=== PATIENT | female | born 1970 | race Caucasian/White ===

== ENCOUNTER 2021-08-22 20:48 | Emergency (ER) | payer MEDICARE, SELFPAY ==
[2021-08-22 21:31] VITALS: BP 159/98; PULSE 96; RESP 18; TEMP 36.7; O2SAT 96
[2021-08-22 21:59] LABS: Glucose Point of Care 178 mg/dL (70-110)
[2021-08-23 00:53] LABS: Glucose Point of Care 127 mg/dL (70-110)
[2021-08-23 00:56] LABS: Basophils # 0.1 10^3/uL (0.0-0.1); Basophils % 0.9 %; Eosinophils # 0.2 10^3/uL (0.0-0.8); Eosinophils % 2.4 %; Hematocrit 41.5 % (37.0-47.0); Hemoglobin 13.4 g/dL (11.5-15.3); Lymphocytes # 2.8 10^3/uL (0.8-4.8); Mean Corpuscular HGB Conc 32.3 g/dL (30.0-36.0); Mean Corpuscular Hemoglobin 27.3 pg (28.0-34.0); Mean Corpuscular Volume 84.7 fl (81-99); Mean Platelet Volume 9.5 fL (7.4-10.4); Monocytes # 0.5 10^3/uL (0.2-0.9); Neutrophils # 5.49 10^3/uL (1.8-7.7); Neutrophils % 60.5 %; Nucleated Red Blood Cells % 0 %; Platelet Count 301 10^3/cmm (130-400); Red Cell Distribution Width 15.1 % (12.1-15.1); White Blood Count 9.1 10^3/uL (4.0-10.0)
[2021-08-23 01:17] LABS: Alanine Aminotransferase 19 U/L (0-33); Albumin Level 4.4 g/dL (3.5-5.2); Alkaline Phosphatase 90 IU/L (35-105); Anion Gap 16.4 (5-19); Aspartate Amino Transferase 17 U/L (0-32); Blood Urea Nitrogen 21 mg/dL (6-20); Calcium 9.2 mg/dL (8.5-10.5); Carbon Dioxide 26 mmol/L (22-29); Chloride 98 mmol/L (98-107); Globulin 2.8 g/dL (1.3-4.6); Glomerular Filtration Rate 105.4 mL/min (90-130); Glucose 128 mg/dL (65-115); Osmolality Calculated 287 mOsm/kg (285-295); Potassium 4.4 mmol/L (3.5-5.1); Sodium 136 mmol/L (136-145); Total Bilirubin 0.2 mg/dL (0.15-1.2); Total Protein 7.2 g/dL (6.6-8.7)
--- NOTE | 2021-08-23 04:18 | W.ED.RECABL ---
HPI - Recheck/Abnormal Lab/Rx General: Chief Complaint: Recheck/Abnormal Lab/Rx Stated Complaint: trouble with blood sugar Time Seen by Provider: 08/23/21 00:09 History of Present Illness: 51-year-old female from [place]. She presents stating that she has had trouble keeping her sugar up today. Traveling back 800 miles to [place], and the is worried as the patient has had to give herself 2 glucagon shots today to keep her sugar up. She has no glucagon left. She has been eating more sugary foods, and drinking juice, etc. to keep her sugar up today as well. It still seems to want to follow if she stops eating. She denies any recent illness, fever, cough, diarrhea, etc. Associated symptoms: fever, chest pain, nausea and abdominal pain Review of Systems Resp: Reports: dyspnea, productive cough, non-productive cough and wheezing GI: Reports: nausea and vomiting; Denies: abdominal pain Physical Exam Const: COMMON NORMALS: no acute distress, average body habitus and healthy appearing ORIENTATION/CONSCIOUSNESS: Yes awake, Yes oriented to person, Yes oriented to place and Yes oriented to time HENMT: COMMON NORMALS: normocephalic and atraumatic HEAD & SCALP: normocephalic and atraumatic FACE & SINUS: normal facial exam Eye: COMMON NORMALS: Equal, round and reactive pupils present and EOMs intact bilaterally PUPIL: Yes Equal, round and reactive pupils present Chest: COMMONS NORMALS: normal inspection of the chest and normal inspection of the breasts Breast/axilla inspection: Yes normal inspection of the breasts Resp: COMMON NORMALS: normal respiratory effort, No retractions, No use of accessory muscles and clear to auscultation bilaterally AUSCULTATION: clear to auscultation bilaterally Cardio: COMMON NORMALS: regular rate and regular rhythm RATE: regular rate RHYTHM: regular rhythm GI: COMMON NORMALS: Normal to inspection, nondistended, normoactive bowel sounds present, Soft to palpation and non-tender PALPATION: Yes Soft to palpation Neuro: SENSORIUM/ORIENTATION: Yes oriented to person, Yes oriented to place and Yes oriented to time Course Vital Signs: Vital signs: Vital Signs Temperature 98.0 F 08/22/21 21:31 Pulse Rate 96 08/22/21 21:31 Respiratory Rate 18 08/22/21 21:31 Blood Pressure 159/98 08/22/21 21:31 Pulse Oximetry 96 08/22/21 21:31 MDM - Recheck/Abnormal Lab/Rx Medical Decision Making Episodes of hypoglycemia seem to be resolved at this point. She is not had a low blood sugar since she has been here. She will be prescribed glucagon for the ride home in case her needs to use it. She was instructed to check her sugar often, and keep drinking and eating foods with sugar and protein to keep her sugar up. Lab Data : 08/23/21 00:50 08/23/21 00:50 Laboratory Results WBC 9.1 10^3/uL (4.0-10.0) 08/23/21 00:50 RBC 4.90 10^6/uL (4.1-5.3) 08/23/21 00:50 Hgb 13.4 g/dL (11.5-15.3) 08/23/21 00:50 Hct 41.5 % (37.0-47.0) 08/23/21 00:50 MCV 84.7 fl (81-99) 08/23/21 00:50 MCH 27.3 pg (28.0-34.0) L 08/23/21 00:50 MCHC 32.3 g/dL (30.0-36.0) 08/23/21 00:50 RDW 15.1 % (12.1-15.1) 08/23/21 00:50 Plt Count 301 10^3/cmm (130-400) 08/23/21 00:50 MPV 9.5 fL (7.4-10.4) 08/23/21 00:50 Neut % (Auto) 60.5 % 08/23/21 00:50 Lymph % (Auto) 31.0 % 08/23/21 00:50 Williams % (Auto) 5.0 % 08/23/21 00:50 Eos % (Auto) 2.4 % 08/23/21 00:50 Baso % (Auto) 0.9 % 08/23/21 00:50 Neut # (Auto) 5.49 10^3/uL (1.8-7.7) 08/23/21 00:50 Lymph # (Auto) 2.8 10^3/uL (0.8-4.8) 08/23/21 00:50 Williams # (Auto) 0.5 10^3/uL (0.2-0.9) 08/23/21 00:50 Eos # (Auto) 0.2 10^3/uL (0.0-0.8) 08/23/21 00:50 Baso # (Auto) 0.1 10^3/uL (0.0-0.1) 08/23/21 00:50 Nucleated RBC % (auto) 0 % 08/23/21 00:50 Nucleated RBCs # 0.0 /100WBC 08/23/21 00:50 Sodium 136 mmol/L (136-145) 08/23/21 00:50 Potassium 4.4 mmol/L (3.5-5.1) 08/23/21 00:50 Chloride 98 mmol/L (98-107) 08/23/21 00:50 Carbon Dioxide 26 mmol/L (22-29) 08/23/21 00:50 Anion Gap 16.4 (5-19) 08/23/21 00:50 BUN 21 mg/dL (6-20) H 08/23/21 00:50 Creatinine 0.6 mg/dL (0.5-0.9) 08/23/21 00:50 GFR Calculation 105.4 mL/min (90-130) 08/23/21 00:50 Glucose 128 mg/dL (65-115) H 08/23/21 00:50 POC Glucose 127 mg/dL (70-110) H 08/23/21 00:49 Calculated Osmolality 287 mOsm/kg (285-295) 08/23/21 00:50 Calcium 9.2 mg/dL (8.5-10.5) 08/23/21 00:50 Total Bilirubin 0.2 mg/dL (0.15-1.2) 08/23/21 00:50 AST 17 U/L (0-32) 08/23/21 00:50 ALT 19 U/L (0-33) 08/23/21 00:50 Alkaline Phosphatase 90 IU/L (35-105) 08/23/21 00:50 Total Protein 7.2 g/dL (6.6-8.7) 08/23/21 00:50 Albumin 4.4 g/dL (3.5-5.2) 08/23/21 00:50 Globulin 2.8 g/dL (1.3-4.6) 08/23/21 00:50 Discharge Plan Discharge Patient Disposition: Home Clinical Impression: Hypoglycemia Condition: Stable Prescriptions: New Glucagon Emergency Kit (human) 1 mg recon soln 1 mg IM Q20M PRN (Reason: hypoglycemia) Qty: 1 0RF Rx Instructions: until target blood sugar attained Discharge Orders: Discharge ED (Routine); Ordered 08/23/21 Ordered By: Anoop Marie Activity Restrictions/Additional Instructions: Check your blood sugar every 2-3 hours for the next 24 hours. Oral sugar replenishment is favored over other ways of increasing your blood sugar. Use the prescribed glucagon if necessary. Return for any problems. Coding Level of Care Code ED Information Engineer for Henry Melendrez
== END 2021-08-23 01:43 | disposition home or self-care (01) ==
PROVIDERS: Nurse Practitioner Family; Emergency Provider Emergency Medicine
DX: E16.2 Hypoglycemia, unspecified (principal)
CPT/HCPCS: 36416; 80053; 82962; 85025; 99283